=== PATIENT | male | born 1970 | race Caucasian/White ===

== ENCOUNTER 2021-06-15 14:40 | Emergency (ER) | payer OTHER ==
[~2021-06-15 14:40] MED LIST: IBUPROFEN800 MG PO
[2021-06-15 16:23] LABS: WHITE BLOOD COUNT 6.3 K/UL (4.5-11.0)
[2021-06-15 16:48] LABS: BUN/CREATININE RATIO 12 (0-10)
== END 2021-06-15 18:12 | disposition home or self-care (01) ==
LOC: ER1 14:40
PROVIDERS: Physician Assistant
DX: R06.02 Shortness of breath (principal); R51.9 Headache, unspecified; R20.2 Paresthesia of skin; Z88.5 Allergy status to narcotic agent
CPT/HCPCS: 71045; 80053; 85025; 99285